=== PATIENT | male | born 1960 | race Caucasian/White ===

== ENCOUNTER 2018-03-14 06:50 | Day surgery (SDC) | payer OTHER ==
[2018-03-09 09:43] LABS: BASOPHILS % (AUTO) 0.5 % (0-1); EOSINOPHILS # (AUTO) 0.3 X10'3 (0-0.9); EOSINOPHILS % (AUTO) 3.3 % (0-6); HEMOGLOBIN 14.1 g/dl (14.0-17.9); LYMPHOCYTES % (AUTO) 24.7 % (21-51); MEAN CORPUSCULAR HEMOGLOBIN 31.7 PG (27.0-31.0); MEAN CORPUSCULAR HGB CONC 34.4 % (33.0-36.5); MEAN CORPUSCULAR VOLUME 91.9 FL (78-98); MEAN PLATELET VOLUME 8.2 FL (7.4-10.4); MONOCYTES # (AUTO) 0.5 X10'3 (0-0.9); MONOCYTES % (AUTO) 5.8 % (2-12); NEUTROPHILS # (AUTO) 5.4 X10'3 (1.8-7.7); NEUTROPHILS % (AUTO) 65.7 % (42-75); PLATELET COUNT 226 X10'3 (140-440); RED BLOOD COUNT 4.46 X10'6 (4.70-6.10); RED CELL DISTRIBUTION WIDTH 13.1 % (11.5-14.5); WHITE BLOOD COUNT 8.2 X10'3 (4.5-11.0)
[2018-03-09 09:54] LABS: PARTIAL THROMBOPLASTIN TIME 26 SECONDS (22-32)
[2018-03-09 10:00] LABS: ALANINE AMINOTRANSFERASE 31 U/L (12-78); ALBUMIN 3.6 G/DL (3.4-5.0); ALBUMIN/GLOBULIN RATIO 0.9 (1.1-1.5); ALKALINE PHOSPHATASE 70 IU/L (46-116); ANION GAP 10 (8-16); ASPARTATE AMINO TRANSFERASE 21 U/L (10-37); BILIRUBIN,TOTAL 0.4 MG/DL (0.1-1.0); BLOOD UREA NITROGEN 17 MG/DL (7-18); BUN/CREATININE RATIO 17.9 (5.4-32.0); CALCIUM 8.8 MG/DL (8.5-10.1); CHLORIDE 102 MMOL/L (99-107); CREATININE 0.95 MG/DL (0.60-1.10); GLUCOSE 154 MG/DL (70-104); POTASSIUM 4.3 MMOL/L (3.5-5.1); SODIUM 139 MMOL/L (135-145); TOTAL CARBON DIOXIDE 27.4 MMOL/L (24-32); TOTAL PROTEIN 7.4 G/DL (6.4-8.2); eGFR 81 ML/MIN
[2018-03-14] VITALS (11 sets, daily range): BP systolic 112–149; BP diastolic 64–94
[~2018-03-14] VITALS: Ht 188 cm; Wt 138.6 kg
[2018-03-14] MEDS ORDERED: glucagon, human recombinant 1mg kit SUBCUT PRN (07:40)
[2018-03-14] MEDS ORDERED: normal saline 1000ml 1,000 ML IV SCH ×2 (07:40→10:55)
[2018-03-14] MEDS ORDERED: insulin Lispro (HumaLOG) vial - multi-dose SQ SCH (07:40)
[2018-03-14] MEDS ORDERED: nitroGLYCERIN 0.4mg SUBLingual tab SL PRN ×2 (07:40→10:55)
[2018-03-14] MEDS ORDERED: diphenhydrAMINE 25mg capsule PO PRN (07:40)
[2018-03-14] MEDS ORDERED: LORazepam 0.5 MG tablet PO PRN (07:40)
[2018-03-14] MEDS ORDERED: MESSAGE TO PHARMACY PO ONE (07:40)
[2018-03-14] MEDS ORDERED: dextrose ORAL solution 15 GM/59 ML bottle PO PRN ×2 (07:40)
[2018-03-14] MEDS ORDERED: dextrose 50%-water 50ml dispensing syringe IV PRN ×2 (07:40)
[2018-03-14] MEDS ORDERED: ASPI81TA52 PO (07:46)
[2018-03-14] MEDS ORDERED: GABA-532 PO (07:46)
[2018-03-14] MEDS ORDERED: METF500T PO (07:46)
[2018-03-14] MEDS ORDERED: AMLO5TAB PO (07:46)
[2018-03-14] MEDS ORDERED: GLIM4TAB79 PO (07:46)
[2018-03-14] MEDS ORDERED: LIDOcaine 1% (10mg/ml) 2ml vial ONE (08:48)
[2018-03-14] MEDS ORDERED: midazolam 2 mg/2 ml injection ONE ×3 (09:22→10:04)
[2018-03-14] MEDS ORDERED: fentaNYL/PF 50MCG/1 ML 2ML syringe ONE (09:22)
[2018-03-14] MEDS ORDERED: iohexol 350 MG/ML 50ML vial IV ONE (09:56)
[2018-03-14] MEDS ORDERED: HYDROcodone/acetaminophen 5mg/325mg tablet PO PRN (10:55)
[2018-03-14] MEDS ORDERED: HYDROcodone/acetaminophen 10/325mg tab PO PRN (10:55)
[2018-03-14] MEDS ORDERED: OXAZEpam 15mg capsule PO PRN (10:55)
[2018-03-14] MEDS ORDERED: ondansetron/PF 4mg/2ml inj IV PRN (10:55)
[2018-03-14] MEDS ORDERED: proCHLORperazine 10 MG/2 ml inj IV PRN (10:55)
[2018-03-14 17:06] LABS: ISTAT HGB ART 12.6 g/dl (14.0-18.0); ISTAT Hct ART 37 %PCV (42-52); ISTAT O2 SATURATION ARTERIAL 93 % (95-98); ISTAT SOURCE ART
[2018-03-14] MEDS ORDERED: insulin glargine (Lantus) pen - multi-dose SQ SCH (21:00)
[2018-03-15 05:16] LABS: ISTAT Hct MIX 37 %PCV (42-52); ISTAT O2 SATURATION MIX VENOUS 76 % (60-80); ISTAT SOURCE MIX
== END 2018-03-14 16:00 | disposition home or self-care (01) ==
LOC: SSTAY O 06:50
PROVIDERS: ATTEND Internal Medicine Cardiovascular Disease
DX: I25.10 Atherosclerotic heart disease of native coronary artery without angina pectoris (principal); E11.9 Type 2 diabetes mellitus without complications; I10 Essential (primary) hypertension; I35.2 Nonrheumatic aortic (valve) stenosis with insufficiency; G47.33 Obstructive sleep apnea (adult) (pediatric); Z79.82 Long term (current) use of aspirin; Z79.84 Long term (current) use of oral hypoglycemic drugs; Z87.891 Personal history of nicotine dependence; Z79.899 Other long term (current) drug therapy; Z98.890 Other specified postprocedural states
CPT/HCPCS: 36415; 71046; 80053; 82803; 82948; 85014; 85025; 85610; 85730; 93005; 93460; 93567; 99152; 99153; A6257; C1760; C1769; J1644; J2250; J3010; J3490; J7030; Q0163; Q9967; A4620

== ENCOUNTER 2023-11-02 11:04 | Day surgery (SDC) | payer BC ==
[~2023-11-02] VITALS: Ht 185.4 cm; Wt 126.2 kg
[2023-11-02] VITALS (9 sets, daily range): BP systolic 97–120; BP diastolic 56–76; PULSE 68–77; RESP 9–24; TEMP 98; O2SAT 92–98
[~2023-11-02 11:04] MED LIST: AMLO5TAB PO; ASPI81TA52 PO; GABA-532 PO; GLIM4TAB7 PO; METF500T PO
[2023-11-02] MEDS ORDERED: LORazepam 0.5 MG tablet PO PRN (11:30)
[2023-11-02] MEDS ORDERED: diphenhydrAMINE 25mg capsule PO PRN (11:30)
[2023-11-02] MEDS ORDERED: normal saline 1,000 ML IV SCH (11:30)
[2023-11-02] MEDS ORDERED: verapamil 2.5 mg/ml inj IV ONE (11:33)
[2023-11-02] MEDS ORDERED: LIDOcaine 1% (10mg/ml) 2ml vial ONE (11:33)
[2023-11-02] MEDS ORDERED: midazolam 1 mg/ML 2ml injection ONE ×2 (11:34→12:47)
[2023-11-02] MEDS ORDERED: heparin 1,000unit/ml 10ml vial 10 ML ONE (11:34)
[2023-11-02] MEDS ORDERED: iohexol 350MG/ML 100ml bottle IV ONE (11:34)
[2023-11-02] MEDS ORDERED: fentaNYL/PF 50MCG/1 ML 2ML syringe ONE (11:34)
[2023-11-02] MEDS ORDERED: nitroGLYCERIN 500mcg/5mL D5W 5 ML IV ONE (11:38)
[2023-11-02 12:06] LABS: APTT 28 SECONDS (22-32); INR 1.1 INR
[2023-11-02 12:07] LABS: BASOPHILS # (AUTO) 0.1 X10'3 (0-0.2); BASOPHILS % (AUTO) 1.2 % (0-1); EOSINOPHILS # (AUTO) 0.2 X10'3 (0-0.9); EOSINOPHILS % (AUTO) 1.7 % (0-6); HEMATOCRIT 44.3 % (42.0-52.0); HEMOGLOBIN 14.8 g/dl (14.0-17.9); LYMPHOCYTES # (AUTO) 1.3 X10'3 (1.1-4.8); LYMPHOCYTES % (AUTO) 14.1 % (21-51); MEAN CORPUSCULAR HEMOGLOBIN 32.4 PG (27.0-31.0); MEAN CORPUSCULAR HGB CONC 33.5 g/dL (33.0-36.5); MEAN CORPUSCULAR VOLUME 96.8 FL (78-98); MEAN PLATELET VOLUME 9.7 FL (7.4-10.4); MONOCYTES # (AUTO) 0.6 X10'3 (0-0.9); MONOCYTES % (AUTO) 5.8 % (2-12); NEUTROPHILS # (AUTO) 7.3 X10'3 (1.8-7.7); NEUTROPHILS % (AUTO) 77.2 % (42-75); PLATELET COUNT 152 X10'3 (140-440); RED BLOOD COUNT 4.58 X10'6 (4.70-6.10); RED CELL DISTRIBUTION WIDTH 15.1 % (11.5-14.5); WHITE BLOOD COUNT 9.5 X10'3 (4.5-11.0)
[2023-11-02 12:09] LABS: ALBUMIN 3.4 G/DL (3.4-5.0); ANION GAP 7 (8-16); BLOOD UREA NITROGEN 30 MG/DL (7-18); BUN/CREATININE RATIO 21.1 (10.0-20.0); CHLORIDE 100 MMOL/L (99-107); CHOL/HDL RATIO 2.4 (0.00-4.99); CHOLESTEROL 121 MG/DL (0-200); CREATININE 1.42 MG/DL (0.60-1.10); GLUCOSE 216 MG/DL (70-104); HDL CHOLESTEROL 50 MG/DL (35-60); LDL CHOLESTEROL 68 MG/DL (50-100); POTASSIUM 4.2 MMOL/L (3.5-5.1); SODIUM 135 MMOL/L (135-145); TOTAL CARBON DIOXIDE 28.5 MMOL/L (24-32); TRIGLYCERIDES 65 MG/DL (20-135); eCRCL 59 ML/MIN; eGFR 50 ML/MIN
[2023-11-02] MEDS ORDERED: HYDR25TA5 PO (12:11)
[2023-11-02] MEDS ORDERED: ALBU8HFA PO (12:11)
[2023-11-02] MEDS ORDERED: FURO40TA4 PO (12:11)
[2023-11-02] MEDS ORDERED: TEST2.5G2 TOP (12:11)
[2023-11-02] MEDS ORDERED: METO-411 PO (12:11)
[2023-11-02] MEDS ORDERED: TIRZ2.5P SQ (12:11)
[2023-11-02] MEDS ORDERED: HYDROcodone/acetaminophen 5mg/325mg tablet PO PRN (13:45)
[2023-11-02] MEDS ORDERED: HYDROcodone/acetaminophen 10/325mg tab PO PRN (13:45)
[2023-11-14 08:29] LABS: ISTAT HGB MIX 14.6 g/dl (14.0-17.9); ISTAT Hct MIX 43 %PCV (42-52); ISTAT O2 SATURATION MIX VENOUS 55 % (60-80); ISTAT SOURCE BLNK
[2023-11-14 08:30] LABS: ISTAT HGB MIX 13.6 g/dl (14.0-17.9); ISTAT Hct MIX 40 %PCV (42-52); ISTAT O2 SATURATION MIX VENOUS 84 % (60-80); ISTAT SOURCE BLNK
== END 2023-11-02 16:10 | disposition home or self-care (01) ==
LOC: SSTAY O 11:04
PROVIDERS: ATTEND Student in an Organized Health Care Education/Training Program
DX: I35.0 Nonrheumatic aortic (valve) stenosis (principal); E11.40 Type 2 diabetes mellitus with diabetic neuropathy, unspecified; I11.0 Hypertensive heart disease with heart failure; I50.9 Heart failure, unspecified; E78.5 Hyperlipidemia, unspecified; I42.8 Other cardiomyopathies; G47.33 Obstructive sleep apnea (adult) (pediatric); I65.29 Occlusion and stenosis of unspecified carotid artery; Z79.899 Other long term (current) drug therapy; Z88.8 Allergy status to other drugs, medicaments and biological substances
CPT/HCPCS: 36415; 80048; 80061; 82803; 85014; 85025; 85610; 85730; 93005; 93456; 99152; J1644; J2250; J3010; J3490; J7030; Q9967; 99153; A6258; A6402; A6449; C1769; C1894

== ENCOUNTER 2024-01-18 11:17 | Emergency (ER) | payer BC ==
[~2024-01-18] VITALS: Ht 182.9 cm; Wt 131.8 kg
[~2024-01-18 11:17] MED LIST changes: +ALBU8HFA PO; +AMI200T PO; -AMLO5TAB PO; +APIX5TAB3 PO; -ASPI81TA52 PO; +ASPI81TA53 PO; +ATOR10TA PO; +AZIT-164 PO; +FURO-150 PO; -GABA-532 PO; -GLIM4TAB7 PO; +HYDR-3972 PO; +LOP25T PO; -METF500T PO; +POTA-207 PO; +SEMA3TAB4 PO
[2024-01-18 11:22] VITALS: TEMP 98.1
[2024-01-18 13:47] VITALS: BP 127/74; PULSE 73; RESP 18; O2SAT 97
== END 2024-01-18 13:48 | disposition home or self-care (01) ==
LOC: ER 11:18
DX: L76.22 Postprocedural hemorrhage of skin and subcutaneous tissue following other procedure (principal); I50.9 Heart failure, unspecified; Z79.899 Other long term (current) drug therapy; Z88.8 Allergy status to other drugs, medicaments and biological substances; Z91.018 Allergy to other foods
CPT/HCPCS: 71045; 99283